=== PATIENT | female | born 1955 | race Caucasian/White ===

== ENCOUNTER 2016-09-24 17:20 | Inpatient (IN) | payer BC ==
--- NOTE | ~2016-09-24 | DS ---
Discharge Summary [facility] [address] [place]. [address] NAME: MICHELL SMITH : 53 STATUS : DIS IN PAT#: [id number] AGE: 61 ADM/REG DATE : 09/24/16 MR#: [id number] REPORT SERV DATE: 09/27/16 DICTATED BY: GERARDO FITZPATRICK SCOT DATE: 09/27/16 REPORT STATUS : Draft TRANSCRIBED BY: MODL DATE: 09/27/16 ADMISSION DATE: 09/24/2016 DISCHARGE DATE: 09/27/2016 DISCHARGE DIAGNOSES: Include: 1. Syncope/collapse. 2. Subclavian steal syndrome. 3. Hypertensive urgency, improved. 4. Hypothyroidism, most recent TSH 6.240. 5. Hyperlipidemia. 6. Atherosclerosis. 7. Right middle lobe endobronchial narrowing noted on CTA of the chest. DISCHARGE MEDICINES: As follows; amlodipine 2.5 mg twice a day, aspirin 81 mg daily, Lipitor 80 mg at bedtime, Plavix 75 mg daily, vitamin D 50,000 units p.o. weekly, hydrochlorothiazide 25 mg p.o. daily, metoprolol 25 mg twice a day, Prilosec 40 mg at bedtime, Klor-Con 10 mEq daily, and Antivert 12.5 mg half a tablet twice a day p.r.n. for vertigo symptoms. HISTORY OF PRESENT ILLNESS: A 61-year-old white female, who presented with syncopal episode and hypertensive urgency. Please see the initial H and P of Dr. Tramaine Johnson as the patient was admitted to the Hospitalist Service for further evaluation and treatment. CONSULTANTS DURING THIS ADMISSION: Include Vascular Surgery, Dr. Abraham and Pulmonary, Dr. Gutierrez. PROCEDURES AND IMAGING: During this admission include: An initial CT scan of the brain that was unremarkable. No acute intracranial pathology noted. An MRA of the head showing some focal atherosclerotic changes, possibly moderate stenosis of M2 segment of the right MCA. MRA of the neck, findings suggested high-grade left subclavian artery stenosis. MRI of the brain that was normal. CTA of the chest, high-grade stenosis in the left subclavian, endobronchial narrowing of the right middle lobe. An aortogram with runoff and stent placement for left subclavian steal that was performed on 09/26/2016. CONTINUATION IN HOSPITAL COURSE: The patient was initially followed up by Dr. Dary Calderon after admission with information systems consultant, Dr. Abraham seeing the patient. The above described imaging was performed confirming the subclavian steal syndrome. She was placed on additional blood pressure medicines, initially as well, including a clonidine patch to combat her hypertensive urgency, which improved. Lipitor was increased. Aspirin was increased initially and she was taken for the aortogram with stent placement by Dr. Abraham on 09/26/2016 and recovered well thereafter. Of note, the endobronchial narrowing was found on CT of chest, so a consult had been placed to Pulmonary Service, Dr. Gutierrez, who saw the patient, but she had already had an extensive outpatient workup and will follow up with Dr. Cook, her coater operator. She has followup with Dr. Abraham in four to six weeks after hospitalization. She has been instructed to recheck her TSH and liver function tests in four weeks through her primary care and given her overall symptomatic improvement and Discharge Summary [address] [address] NAME: MICHELL SMITH : 53 STATUS : DIS IN PAT#: [id number] AGE: 61 ADM/REG DATE : 09/24/16 MR#: [id number] REPORT SERV DATE: 09/27/16 DICTATED BY: GERARDO FITZPATRICK DATE: 09/27/16 REPORT STATUS : Draft TRANSCRIBED BY: PRADEEP DATE: 09/27/16 recovery, she was felt safe for discharge home on 09/27/2016 with the above described followups, medications, outpatient regimen. Please note, greater than 30 minutes was spent on this discharge for medication teaching, followup planning, and further disposition. DICTATED BY: Gerardo Fitzpatrick NP [facility] Gerardo Fitzpatrick NP / [id number] CC: Easton Peck MD
--- NOTE | ~2016-09-24 | HP ---
History And Physical [place] [id number] [facility] [place]. [address] NAME: MICHELL SMITH : 53 STATUS : ADM IN PAT#: [id number] AGE: 61 ADM/REG DATE : 09/24/16 MR#: [id number] REPORT SERV DATE: 09/25/16 DICTATED BY: TRAMAINE PICKARD DATE: 09/25/16 REPORT STATUS : Draft TRANSCRIBED BY: MODL DATE: 09/25/16 DATE OF ADMISSION: 09/24/2016 CHIEF COMPLAINT: Passed out this afternoon. HISTORY OF PRESENT ILLNESS: This is a 61-year-old female with a history of subclavian steal syndrome and hypertension, who presents to the emergency room at [facility], with the above-mentioned complaint. History is obtained from the patient and reviewing data available on the [facility] system. According to Mrs. Smith, she had usual state of health until this afternoon when she felt lightheaded and dizzy, flushed, and felt that she was going to pass out while she was lying in bed this afternoon. She was in bed in the afternoon to get some rest and a nap when this happened. She recalls, of late, she has been having increasing frequency of these episodes where she feels she is going to pass out. She feels hot and flushed. Her face is all flushed during these episodes. She does have a history of subclavian steal syndrome, was being followed by a vascular surgeon, who was out of town, from where she moved to [place]. Since then, she had established care with Dr. Abraham, had an ultrasound done recently, which showed subclavian steal syndrome. Dr. Abraham wanted to perform an intervention, but prior to that, wanted Cardiology to see her. She had a cardiac catheterization done, 09/23/2016, at [facility]. Her health and wellness advisor had also told her that if she had these symptoms where she was going to pass out, she was required to go to the emergency room right away. So today, after she had an episode, she called her sister-in law, who then arranged to have her brought here. In the emergency room, she had uncontrolled hypertension, was treated with clonidine transdermally to bring her pressure down. The ER physician had spoken with Dr. Abraham today, who suggested admission under hospitalist care and he would consult later. Hospitalist Service is asked to admit her for further evaluation and treatment. At the time of my evaluation, she denied any chest pain, palpitations, or orthopnea. She had no cough, hemoptysis, night sweats, or weight loss. She has not had any falls recently. She denied any recent fevers, chills, nausea, vomiting, or diarrhea. Denied any hematemesis, hematochezia, or hematuria. No other history of recent travel or exposures other than those mentioned above. PAST MEDICAL HISTORY: Significant for hypertension and subclavian steal syndrome. SOCIAL HISTORY: She does not smoke, drink, or use recreational drugs. She works in the post office. FAMILY HISTORY: Noncontributory. MEDICATIONS: Her medications at home were reviewed by me in the chart today and reordered by me. History And Physical [address] [place]. [address] NAME: MICHELL SMITH : 53 STATUS : ADM IN [facility]ED WITH [facility]#: [id number] AGE: 61 ADM/REG DATE : 09/24/16 MR#: [id number] REPORT SERV DATE: 09/25/16 DICTATED BY: TRAMAINE PICKARD DATE: 09/25/16 REPORT STATUS : Draft TRANSCRIBED BY: PRADEEP DATE: 09/25/16 REVIEW OF SYSTEMS: As in history of present illness. All other systems were reviewed in detail and are quite unremarkable. PHYSICAL EXAMINATION: GENERAL: This is a pleasant 61-year-old, not in any acute distress. HEENT: Her head is atraumatic, normocephalic. She is alert, awake, and oriented to time, place, and person. Pupils are equal, reactive to light and accommodating. External ocular muscles are intact. Membranes are moist and pink. Sclerae are nonicteric. NECK: Supple with no jugular venous distention, lymphadenopathy, or thyromegaly. LUNGS: Clear to auscultation with no wheezes, rubs, or crackles. HEART: Heart sounds were regular with no murmurs, rubs, or gallops. ABDOMEN: Soft, nontender. Bowel sounds are present. EXTREMITIES: Showed no cyanosis, clubbing, or edema. NEUROLOGIC: Grossly intact. No focal sensory or motor deficits. Higher functions appeared intact. VITAL SIGNS: Her vital signs today showed a temperature of 97.7, pulse was 77, respirations 16 to 18 a minute, blood pressure was 194/62 upon arrival. Oxygen saturations were 95% on 2 L via nasal cannula. LABORATORY DATA: Reviewed on the [facility] system showed a sodium of 139, potassium 3.4, chloride 103, and CO2 of 31. BUN was 16 with a creatinine of 0.91, blood glucose was 97. Alkaline phosphatase, ALT, and AST were within normal limits. Troponin was 0.02. BNP was 100.7. CBC showed a white blood cell count of 8100, hemoglobin was 12.4, hematocrit 37.8, and platelet count was 257,000. Prothrombin time was 13.6 with an INR of 1.1. Urinalysis revealed no gross abnormality. Films of the chest x-ray were reviewed by me on the PACS today and interpreted by me. There is normal bony architecture with cardiomegaly. No infiltrates or pleural effusions seen. A 12-lead EKG done in the emergency room was reviewed and interpreted by me. There is normal sinus rhythm without any acute ST-T changes. IMPRESSION: 1. Syncope. 2. Uncontrolled hypertension. 3. Subclavian steal syndrome. PLAN: We will admit Ms. Smith to the Hospitalist Service with telemetry. We will control her blood pressures. She was given clonidine patch in the ER. This has brought her pressures down considerably. We will monitor closely and also use hydralazine intravenously on an as needed basis if necessary. We will go ahead and consult Dr. Abraham to see her in the morning. He is aware of the patient's arrival here and will be seeing her in the morning. The patient's symptoms could also be from a CVA or TIA. We will go ahead and get an MRI and MRA of the brain and see if we can include the subclavian arteries in the MRA as well. We will also get an echocardiogram in the morning. Meanwhile, we will place her on unfractionated heparin for DVT prophylaxis while she is here. Further recommendations will History And Physical [address] [place]. [address] NAME: MICHELL SMITH : 53 STATUS : ADM IN PAT#: [id number] AGE: 61 ADM/REG DATE : 09/24/16 MR#: [id number] REPORT SERV DATE: 09/25/16 DICTATED BY: TRAMAINE PICKARD DATE: 09/25/16 REPORT STATUS : Draft TRANSCRIBED BY: PRADEEP DATE: 09/25/[address] Abraham has had a chance to see her. Hospitalist Service will be following her during her stay here. /PRADEEP Tramaine Pickard M.D. / [id number] CC: Dary Calderon M.D.
--- NOTE | ~2016-09-24 | OP ---
Record Of Operation [facility] [address] [place]. [address] NAME: MICHELL SMITH : 53 STATUS : DIS IN PAT#: [id number] AGE: 61 ADM/REG DATE : 09/24/16 MR#: [id number] REPORT SERV DATE: 09/28/16 DICTATED BY: GERARDO ABRAHAM DATE: 09/28/16 REPORT STATUS : Draft TRANSCRIBED BY: MODAnn DATE: 09/28/16 DATE OF PROCEDURE: 09/26/2016 PREPROCEDURE DIAGNOSIS: Subclavian steal syndrome. POSTOPERATIVE DIAGNOSIS: A 95% obstruction of the left subclavian artery stent. PROCEDURE PERFORMED: 1. Arch aortogram. 2. Selective catheterization of left subclavian artery with direct arteriography. 3. Angioplasty of left subclavian artery stents, 5 x 2. 4. Secondary stent iCAST, 6 x 22 mm. ANESTHESIA: Local, MAC. COMPLICATIONS: None. INDICATION FOR PROCEDURE: Secondary to this very pleasant 61-year-old female, presenting with vertigo and ataxic symptoms consistent with subclavian steal syndrome, recommendations were made for arteriography to further define her left subclavian artery and repair this if appropriate. Risks and benefits discussed. Consent was obtained. DETAILS OF PROCEDURE: The patient was brought to the endovascular operating room, placed in supine position, prepped and draped in routine sterile fashion with attention to the bilateral groin region. The right femoral artery was then cannulated with a micropuncture needle under ultrasound guidance. Wire was then placed followed by a sheath. Pictures of these structures were taken and placed on the chart. The sheath was then placed. The wire was then advanced to the aorta. Next, a Theresa flush catheter was advanced into the thoracic aorta and a 30-degree SAO TOMEAN arch arteriogram was then performed defining the origin of the proximal stent. There was limited flow, but a wire could be passed into the subclavian stent followed by a catheter arteriogram demonstrated obstruction, 95%, in the stented segment. The wire was then advanced through this stent into the subclavian artery. Heparin 3000 units was given to allow to circulate. Angioplasty was then performed with a 5 x 2 balloon and a long sheath was then advanced to the origin of the stent. A 6 x 22 iCAST stent was then placed into the left subclavian artery and angioplastied into position. Completion imaging showed this to be widely patent with excellent flow to the subclavian artery and vertebral artery. At this point, wires, catheters, and sheaths were then removed. The right groin was then closed with an Angio-Seal. The patient tolerated the procedure well. TORI/PRADEEP Gerardo Abraham M.D. Record Of [place] [id number] [facility] [address] NAME: MICHELL SMITH : 53 STATUS : DIS IN PAT#: [id number] AGE: 61 ADM/REG DATE : 09/24/16 MR#: [id number] REPORT SERV DATE: 09/28/16 DICTATED BY: GERARDO ABRAHAM DATE: 09/28/16 REPORT STATUS : Draft TRANSCRIBED BY: PRADEEP DATE: 09/28/16 / [id number] CC: Easton Peck MD
--- NOTE | ~2016-09-24 | CN ---
Consultation Report [facility] [address] [place]. [address] NAME: MICHELL SMITH : 53 STATUS : ADM IN PAT#: [id number] AGE: 61 ADM/REG DATE : 09/24/16 MR#: [id number] REPORT SERV DATE: 09/27/16 DICTATED BY: GOVIND GUTIERREZ IV DATE: 09/27/16 REPORT STATUS : Draft TRANSCRIBED BY: MODAnn DATE: 09/27/16 PULMONARY CONSULTATION DATE OF CONSULTATION: 09/27/2016 REASON FOR REQUEST: Abnormal chest CT scan. HISTORY OF PRESENT ILLNESS: History was obtained from the patient and the records. Ms Smith is a 61-year-old female, with a history of hypertension, and left subclavian steal syndrome, who presents with a syncopal episode and has an incidental finding of right middle lobe bronchus narrowing, with evidence for granulomatous disease. The patient has been diagnosed with a history of subclavian steal. She had a syncopal episode on 09/24/2016, prompting her admission. She underwent stenting yesterday and is recovering. As part of the evaluation, the patient had a CT angiogram of the chest, which demonstrated cluster of partially calcified lymph nodes in the right hilar region with endobronchial narrowing of the right middle lobe bronchus. The patient reports that she has had a known history of endobronchial narrowing on a previous chest CT scan at [facility], however, is unsure on the exact area of involvement. She underwent bronchoscopy earlier this year by Dr. Cook and has had a followup chest CT scan which was reportedly stable. The results of these studies are currently not available for review. She is not on bronchodilator medication nor she on supplemental oxygen. She has no pulmonary limitations to her daily activities. She denies chronic cough, sputum production, fevers, chills, sweats, or hemoptysis. The patient currently has no bed partner and has been told she snores in the past. She underwent a recent sleep study, which reportedly demonstrated no significant obstructive sleep apnea. PULMONARY HISTORY: Remarkable for no history of childhood asthma, no known adult obstructive lung disease or previous pneumonia. She has abnormal chest CT scan as noted above. She is a lifelong nonsmoker with no significant secondary smoke exposure. She works for the post office. She is not up to date on the seasonal influenza vaccine. PAST MEDICAL HISTORY: 1. Hypertension. 2. Left subclavian steal syndrome. PAST SURGICAL HISTORY: 1. Appendectomy. 2. Total abdominal hysterectomy. 3. Left subclavian stent on two occasions. ALLERGIES: THERE ARE NO KNOWN DRUG ALLERGIES. Consultation Report [place] [id number] [place]. [address] NAME: MICHELL SMITH : 53 STATUS : ADM IN PAT#: [id number] AGE: 61 ADM/REG DATE : 09/24/16 MR#: [id number] REPORT SERV DATE: 09/27/16 DICTATED BY: GOVIND GUTIERREZ IV DATE: 09/27/16 REPORT STATUS : Draft TRANSCRIBED BY: PRADEEP DATE: 09/27/16 CURRENT MEDICATIONS: Aspirin 81 mg daily, Catapres patch 0.1 mg every seven days, heparin 5000 units q.8 hours, hydrochlorothiazide 25 mg daily, Lipitor 80 mg at bedtime, Lopressor 25 mg twice a day, Norvasc 2.5 mg twice a day, Plavix 75 mg daily, potassium 10 mEq daily, and Protonix 40 mg daily. SOCIAL HISTORY: Remarkable for no tobacco, alcohol, or illicit drug use. She is and has two children. FAMILY HISTORY: Remarkable for both parents with hypertension and diabetes mellitus. REVIEW OF SYSTEMS: 14-systems reviewed and pertinent positives as noted above. PHYSICAL EXAMINATION: GENERAL: This is at least moderately overweight, late middle-aged, female, in no acute distress. She is alert, awake, and oriented. VITAL SIGNS: Temperature is 97.4, pulse is 60, respiratory rate is 16, saturations are 98% on 2 L via nasal cannula, and blood pressure 112/55. HEENT: Normocephalic and atraumatic. Extraocular movements are intact. Pupils are react to light. Sclerae and conjunctivae are normal. She has a Mallampati 4 airway with narrowing of the posterior pharyngeal space. No other oral lesions are noted. NECK: Without any palpable lymphadenopathy or thyromegaly. CHEST: she has distant breath sounds. There are no wheezes, rhonchi, or crackles noted. CARDIOVASCULAR: Jugular venous pulsations are difficult to elicit. She has 2+ carotid upstrokes. No obvious bruit. She has a distant regular bradycardic S1 and S2, with no clear murmur or S3. Peripheral pulses are intact. ABDOMEN: Surgical scars noted. Protuberant and soft. There are hypoactive bowel sounds. There is no palpable hepatosplenomegaly or masses. EXTREMITIES: Demonstrate no cyanosis, clubbing, edema, or palpable cords. NEUROLOGIC: Strength is 5/5 and sensation is intact to light touch. LABORATORY DATA: Review of the chest CT scan demonstrates a cluster of partially calcified lymph nodes in the right perihilar region with extrinsic narrowing of the right middle lobe bronchus. There is some atelectasis in the right middle lobe. CBC: Hemoglobin 12.3, hematocrit 36.9, platelet count was 242,000, white blood cell count of 6.7. Chemistry; sodium 138, potassium 3.9, chloride 103, bicarb 29, BUN 19, creatinine 0.87, glucose of 86, and magnesium is 2.2. ASSESSMENT AND PLAN: 1. Respiratory. The patient has a known history of endobronchial narrowing which is likely what we are seeing on the current CT scan, with workup to include serial chest CT scans as well as a bronchoscopy. There is no indication for further evaluation currently with the patient already established with Dr. Cook. We will attempt to get a copy of the [facility] CT scan to confirm that the studies are stable. I did discuss with the patient that she may end up having problems with right middle lobe Consultation Report [address] [place]. [address] NAME: MICHELL SMITH : 53 STATUS : ADM IN PAT#: [id number] AGE: 61 ADM/REG DATE : 09/24/16 MR#: [id number] REPORT SERV DATE: 09/27/16 DICTATED BY: GOVIND GUTIERREZ IV DATE: 09/27/16 REPORT STATUS : Draft TRANSCRIBED BY: PRADEEP DATE: 09/27/16 syndrome with atelectasis, though this is typically asymptomatic. The patient does snore and have a body habitus of sleep apnea, however, underwent a recent sleep evaluation which reportedly demonstrated no significant disease. Oxygen saturation will be checked on room air, though it is unlikely she will require supplemental oxygen. 2. Endocrinologic. The patient has compensated hypothyroidism with an elevated TSH, though a normal T4 on presentation. The patient is aware of this and will need to be followed serially for replacement therapy. 3. Cardiovascular. Blood pressure is currently adequately controlled. She may benefit from being on a higher-dose Norvasc and discontinuation of clonidine. 4. Renal. We will give additional potassium. 5. Infectious disease. We discussed the benefits of immunization therapy and I strongly encouraged to get a flu vaccine each year. She will receive the Prevnar 13 and subsequent Pneumovax when she is 64. Thank you for consulting us. There is no indication for additional workup, it will be available as needed. SUMAYA/PRADEEP Govind Gutierrez IV, M.D. / [id number] CC: Dary Calderon M.D.
[~2016-09-24 17:20] MED LIST: ASAB PO; HCTZ25B PO; KLOR-CON 1010 MEQ PO; LIPITOR40 PO; LOP25 PO; MCZ125 PO; NORV5 PO; PRILOSEC40 MG PO; VITAMIN D31000 UNIT PO; VITD PO
[2016-09-24 17:50] LABS: BASOPHILS 0.2 %; BASOPHILS ABSOLUTE 0.02 10/3/uL (0.0-0.16); EOSINOPHILS ABSOLUTE 0.32 10/3/uL (0.0-0.53); ER CBC TAT 0 Hrs 09 Mins; HEMATOCRIT 37.8 % (36.0-48.0); HEMOGLOBIN 12.4 g/dL (12.0-16.0); IMMATURE GRANULOCYTES 0.2 %; IMMATURE GRANULOCYTES ABSOLUTE 0.02 10/3/uL (0.0-0.11); LYMPHOCYTES ABSOLUTE 1.45 10/3/uL (0.67-4.30); MEAN CORPUS HGB CONC 32.8 g/dL (32.0-36.0); MEAN CORPUSCULAR HEMOGLOB 30.3 pg (26.0-34.0); MEAN CORPUSCULAR VOLUME 92.4 fL (80-100); MEAN PLATELET VOLUME 9.6 fL (9.2-13.0); MONOCYTES 7.9 %; MONOCYTES ABSOLUTE 0.64 10/3/uL (0.21-1.20); NEUTROPHILS 69.7 %; NEUTROPHILS ABSOLUTE 5.62 10/3/uL (2.02-8.40); PLATELET COUNT 257 10/3/uL (150-400); RBC DISTRIBUTION WIDTH 12.6 % (12.0-16.0); RED CELL COUNT 4.09 10/6/uL (4.0-5.6); WHITE BLOOD CELLS 8.1 10/3/uL (4.5-10.5)
[2016-09-24 17:54] LABS: MANUAL DIFF NO %
[2016-09-24 18:01] LABS: INTERNATIONAL NORMAL RATI 1.1 UNITS (-); PARTIAL THROMBO TIME 26.6 SEC (22.5-37.2); PROTIME (NOT ORD) 13.6 SEC (12.0-14.5)
[2016-09-24 18:06] LABS: ALBUMIN 3.5 G/DL (3.5-5.0); ALKALINE PHOSPHATASE 89 U/L (45-117); CALCIUM, SERUM 8.3 MG/DL (8.5-10.4); CHEST PAIN PROFILE TAT 0 Hrs 25 Mins; CHLORIDE, SERUM 103 MMOL/L (96-112); CO2 (CARBON DIOXIDE) 31 MMOL/L (24-34); CREATININE 0.91 MG/DL (0.55-1.02); GFR AFRICAN AMERICAN 78 ML/MIN (>=60); GFR NON AFRICAN AMERICAN 68 ML/MIN (>=60); GLUCOSE, SERUM 97 MG/DL (60-99); POTASSIUM, SERUM 3.4 MMOL/L (3.5-5.3); SGOT(AST) 18 U/L (5-40); SGPT(ALT) 29 U/L (5-65); SODIUM, SERUM 139 MMOL/L (135-148); TOTAL BILIRUBIN 0.3 MG/DL (0-1.2); TOTAL PROTEIN 7.6 G/DL (6.0-8.5); TROPONIN I <0.02 NG/ML (<0.05)
[2016-09-24 18:07] LABS: BUN (BLOOD UREA NITROGEN) 16 MG/DL (6-23)
[2016-09-24 18:08] LABS: DIRECT BILIRUBIN < 0.1 MG/DL (0.0-0.4); INDIRECT BILIRUBIN(NOT ORDER) 0.2 MG/DL (0.1-0.9)
[2016-09-24 20:06] LABS: ASCORBIC ACID (UR NOT ORDER) NEG (NEG); BILIRUBIN, URINE NEGATIVE (NEG); ER URINALYSIS TAT 0 Hrs 16 Mins; KETONE, URINE NEGATIVE (NEG); LEUKOCYTE ESTERASE(NOT OR NEG (NEG); NITRITE (URINE) POS (NEG); WBC (NOT ORDERED) (RFLEX) 4 (0-5)
[2016-09-25 06:19] LABS: BASOPHILS 0.1 %; BASOPHILS ABSOLUTE 0.01 10/3/uL (0.0-0.16); EOSINOPHILS 2.9 %; EOSINOPHILS ABSOLUTE 0.23 10/3/uL (0.0-0.53); HEMATOCRIT 36.9 % (36.0-48.0); HEMOGLOBIN 12.3 g/dL (12.0-16.0); IMMATURE GRANULOCYTES 0.1 %; IMMATURE GRANULOCYTES ABSOLUTE 0.01 10/3/uL (0.0-0.11); LYMPHOCYTES 24.1 %; MEAN CORPUS HGB CONC 33.3 g/dL (32.0-36.0); MEAN CORPUSCULAR HEMOGLOB 31.1 pg (26.0-34.0); MEAN CORPUSCULAR VOLUME 93.4 fL (80-100); MEAN PLATELET VOLUME 9.7 fL (9.2-13.0); MONOCYTES 8.4 %; MONOCYTES ABSOLUTE 0.66 10/3/uL (0.21-1.20); NEUTROPHILS 64.4 %; NEUTROPHILS ABSOLUTE 5.06 10/3/uL (2.02-8.40); PLATELET COUNT 244 10/3/uL (150-400); RBC DISTRIBUTION WIDTH 12.5 % (12.0-16.0); RED CELL COUNT 3.95 10/6/uL (4.0-5.6); WHITE BLOOD CELLS 7.9 10/3/uL (4.5-10.5)
[2016-09-25 06:22] LABS: MANUAL DIFF NO %
[2016-09-25 06:42] LABS: BUN (BLOOD UREA NITROGEN) 15 MG/DL (6-23); CALCIUM, SERUM 8.4 MG/DL (8.5-10.4); CHLORIDE, SERUM 107 MMOL/L (96-112); CO2 (CARBON DIOXIDE) 28 MMOL/L (24-34); CREATININE 0.78 MG/DL (0.55-1.02); GFR AFRICAN AMERICAN 94 ML/MIN (>=60); GFR NON AFRICAN AMERICAN 81 ML/MIN (>=60); GLUCOSE, SERUM 103 MG/DL (60-99); PHOSPHORUS, SERUM 3.4 MG/DL (2.5-4.5); POTASSIUM, SERUM 3.7 MMOL/L (3.5-5.3); SODIUM, SERUM 140 MMOL/L (135-148)
[2016-09-25 10:10] LABS: FREE T4 0.93 NG/DL (0.76-1.46)
[2016-09-26 05:12] LABS: BASOPHILS 0.2 %; BASOPHILS ABSOLUTE 0.01 10/3/uL (0.0-0.16); EOSINOPHILS 6.7 %; EOSINOPHILS ABSOLUTE 0.41 10/3/uL (0.0-0.53); HEMATOCRIT 37.6 % (36.0-48.0); HEMOGLOBIN 12.7 g/dL (12.0-16.0); IMMATURE GRANULOCYTES 0.3 %; IMMATURE GRANULOCYTES ABSOLUTE 0.02 10/3/uL (0.0-0.11); LYMPHOCYTES 30.7 %; LYMPHOCYTES ABSOLUTE 1.87 10/3/uL (0.67-4.30); MEAN CORPUS HGB CONC 33.8 g/dL (32.0-36.0); MEAN CORPUSCULAR HEMOGLOB 31.1 pg (26.0-34.0); MEAN CORPUSCULAR VOLUME 91.9 fL (80-100); MEAN PLATELET VOLUME 9.6 fL (9.2-13.0); MONOCYTES 7.7 %; MONOCYTES ABSOLUTE 0.47 10/3/uL (0.21-1.20); NEUTROPHILS 54.4 %; NEUTROPHILS ABSOLUTE 3.31 10/3/uL (2.02-8.40); PLATELET COUNT 233 10/3/uL (150-400); RBC DISTRIBUTION WIDTH 12.7 % (12.0-16.0); RED CELL COUNT 4.09 10/6/uL (4.0-5.6); WHITE BLOOD CELLS 6.1 10/3/uL (4.5-10.5)
[2016-09-26 05:15] LABS: MANUAL DIFF NO %
[2016-09-26 05:23] LABS: BUN (BLOOD UREA NITROGEN) 16 MG/DL (6-23); CALCIUM, SERUM 8.7 MG/DL (8.5-10.4); CHLORIDE, SERUM 104 MMOL/L (96-112); CO2 (CARBON DIOXIDE) 28 MMOL/L (24-34); CREATININE 0.82 MG/DL (0.55-1.02); GFR AFRICAN AMERICAN 89 ML/MIN (>=60); GFR NON AFRICAN AMERICAN 77 ML/MIN (>=60); GLUCOSE, SERUM 107 MG/DL (60-99); POTASSIUM, SERUM 3.8 MMOL/L (3.5-5.3); SODIUM, SERUM 138 MMOL/L (135-148)
[2016-09-27 06:12] LABS: BASOPHILS 0.3 %; BASOPHILS ABSOLUTE 0.02 10/3/uL (0.0-0.16); EOSINOPHILS 2.7 %; EOSINOPHILS ABSOLUTE 0.18 10/3/uL (0.0-0.53); HEMATOCRIT 36.9 % (36.0-48.0); HEMOGLOBIN 12.3 g/dL (12.0-16.0); IMMATURE GRANULOCYTES 0.1 %; IMMATURE GRANULOCYTES ABSOLUTE 0.01 10/3/uL (0.0-0.11); LYMPHOCYTES ABSOLUTE 1.21 10/3/uL (0.67-4.30); MEAN CORPUS HGB CONC 33.3 g/dL (32.0-36.0); MEAN CORPUSCULAR HEMOGLOB 30.9 pg (26.0-34.0); MEAN CORPUSCULAR VOLUME 92.7 fL (80-100); MEAN PLATELET VOLUME 9.5 fL (9.2-13.0); MONOCYTES 7.9 %; MONOCYTES ABSOLUTE 0.53 10/3/uL (0.21-1.20); NEUTROPHILS ABSOLUTE 4.78 10/3/uL (2.02-8.40); PLATELET COUNT 242 10/3/uL (150-400); RBC DISTRIBUTION WIDTH 12.5 % (12.0-16.0); RED CELL COUNT 3.98 10/6/uL (4.0-5.6); WHITE BLOOD CELLS 6.7 10/3/uL (4.5-10.5)
[2016-09-27 06:13] LABS: MANUAL DIFF NO %
[2016-09-27 06:24] LABS: BUN (BLOOD UREA NITROGEN) 19 MG/DL (6-23); CALCIUM, SERUM 8.9 MG/DL (8.5-10.4); CHLORIDE, SERUM 103 MMOL/L (96-112); CO2 (CARBON DIOXIDE) 29 MMOL/L (24-34); CREATININE 0.87 MG/DL (0.55-1.02); GFR AFRICAN AMERICAN 83 ML/MIN (>=60); GFR NON AFRICAN AMERICAN 71 ML/MIN (>=60); GLUCOSE, SERUM 86 MG/DL (60-99); POTASSIUM, SERUM 3.9 MMOL/L (3.5-5.3); SODIUM, SERUM 138 MMOL/L (135-148)
[2016-09-27] MEDS ORDERED: PLAVIX PO (14:13)
== END 2016-09-27 15:16 | disposition home or self-care (01) | DRG 39 ==
LOC: ER 17:20 → 2SO 21:01
PROVIDERS: Emergency Medicine; Hospitalist; Internal Medicine Pulmonary Disease; Specialist
PROC: 03743DZ Dilation of Left Subclavian Artery with Intraluminal Device, Percutaneous Approach (ICD-10-PCS; principal; 2016-09-26 15:30)
PROC: B4101ZZ Fluoroscopy of Abdominal Aorta using Low Osmolar Contrast (ICD-10-PCS; 2016-09-26 15:30)
DX: G45.8 Other transient cerebral ischemic attacks and related syndromes (principal); E66.01 Morbid (severe) obesity due to excess calories; I10 Essential (primary) hypertension; J98.09 Other diseases of bronchus, not elsewhere classified; R55 Syncope and collapse; I16.0 Hypertensive urgency; E03.9 Hypothyroidism, unspecified; E78.5 Hyperlipidemia, unspecified; I65.21 Occlusion and stenosis of right carotid artery; L92.9 Granulomatous disorder of the skin and subcutaneous tissue, unspecified; R00.1 Bradycardia, unspecified; I25.118 Atherosclerotic heart disease of native coronary artery with other forms of angina pectoris; I73.9 Peripheral vascular disease, unspecified; E78.00 Pure hypercholesterolemia, unspecified; Z98.890 Other specified postprocedural states; Z82.49 Family history of ischemic heart disease and other diseases of the circulatory system; Z83.3 Family history of diabetes mellitus; Z23 Encounter for immunization; Z79.82 Long term (current) use of aspirin; Z79.899 Other long term (current) drug therapy; Z90.710 Acquired absence of both cervix and uterus; Z90.49 Acquired absence of other specified parts of digestive tract
CPT/HCPCS: 36215; 36221; 37236; 70450; 70544; 70547; 70551; 71010; 71275; 75710; 80048; 80061; 80076; 81001; 83735; 83880; 84100; 84439; 84443; 84484; 85025; 85610; 85730; 93005; 93458; 99152; 99153; 99291; A9270-GY; C1725; C1760; C1769; C1874; C1887; C1894; J2250; J2370; J3010; Q9967